=== PATIENT | female | born 1955 | race Caucasian/White ===

== ENCOUNTER 2020-04-24 15:15 | Observation (INO) | payer MEDICARE ==
[~2020-04-24] VITALS: Ht 157.5 cm; Wt 122.4 kg
[2020-04-24 15:55] LABS: BASOPHILS ABSOLUTE AUTO 0.05 K/mm3 (0.00-0.23); BASOPHILS PERCENT AUTO 0 % (0-2); EOSINOPHILS ABSOLUTE AUTO 0.02 K/mm3 (0.00-0.68); EOSINOPHILS PERCENT AUTO 0 % (0-6); Hematocrit 40.6 % (33.0-51.0); Hemoglobin 12.7 g/dL (11.5-16.0); IMMATURE GRAN ABSOLUTE AUTO 0.22 K/mm3 (0.00-0.10); IMMATURE GRAN PERCENT AUTO 1 % (0-1); LYMPHOCYTES PERCENT AUTO 14 % (21-46); MONOCYTES ABSOLUTE AUTO 1.16 K/mm3 (0.16-1.47); MONOCYTES PERCENT AUTO 4 % (4-13); Mean Corpuscular HGB 27.3 pg (26.0-34.0); Mean Corpuscular HGB Conc 31.3 g/dL (31.5-36.5); Mean Corpuscular Volume 87 fL (80-100); Mean Platelet Volume 10.3 fL (9.1-12.4); NEUTROPHILS ABSOLUTE AUTO 21.67 K/mm3 (1.96-9.15); NEUTROPHILS PERCENT AUTO 81 % (41-73); Platelet Count 407 K/mm3 (150-400); RDW Coefficient Variation 16.1 % (11.7-14.2); RDW Standard Deviation 51.4 fL (35.1-46.3); Red Blood Cell Count 4.66 M/mm3 (3.80-5.20); White Blood Cell Count 26.72 K/mm3 (4.00-11.30)
[2020-04-24 16:13] LABS: Alanine Aminotransfer (ALT/SGP 22 U/L (12-78); Albumin, Blood 3.2 g/dL (3.4-5.0); Albumin/Globulin Ratio 0.7 (0.8-1.8); Alk Phos 61 U/L (50-136); Anion Gap 6 mmol/L (6-16); Aspartate Aminotrans (AST/SGOT 6 U/L (12-37); Bilirubin, Total 0.3 mg/dL (0.1-1.0); Blood Urea Nitrogen 14 mg/dL (8-24); Bun/Creatinine Ratio 18.1 (12.0-20.0); CO2, Blood 30 mmol/L (21-32); Calcium, Blood 9.6 mg/dL (8.5-10.1); Chloride, Blood 104 mmol/L (98-108); Creatinine, Blood 0.77 mg/dL (0.40-1.00); Globulin, Blood 4.8 g/dL (2.2-4.0); Glomerular Filtration Rate >60 (60-); Glucose, Blood 182 mg/dL (70-99); Potassium, Blood 3.7 mmol/L (3.5-5.5); Sodium, Blood 140 mmol/L (136-145)
[2020-04-24] MEDS ORDERED: ATOR10 PO (18:19)
[2020-04-24] MEDS ORDERED: PREGABALIN300 MG PO (18:19)
[2020-04-24] MEDS ORDERED: EUTHYROX175 MC1 PO (18:19)
[2020-04-24] MEDS ORDERED: SITA100T2 PO (18:20)
[2020-04-24] MEDS ORDERED: OZEMPIC1 MG/0.71 SC (18:20)
[2020-04-24] MEDS ORDERED: LEVEMIR FL100 UNIT/2 SC (18:20)
[2020-04-24] MEDS ORDERED: NOVOLOG FL100 UNIT/3 SC (18:21)
[2020-04-24] MEDS ORDERED: ISOSORBIDE MONO30 MG PO (18:21)
[2020-04-24] MEDS ORDERED: LISINOPRIL-HCT1 EACH PO (18:22)
[2020-04-24] MEDS ORDERED: BEVESPI AEROS10.7 G1 INH (18:23)
[2020-04-24] MEDS ORDERED: METFORMIN HCL1000 M3 PO (18:23)
[2020-04-24] MEDS ORDERED: OMEP20ER PO (18:24)
[2020-04-24] MEDS ORDERED: Aspir 8181 MG PO (18:59)
[2020-04-24] MEDS ORDERED: BIOTIN1 MG PO (18:59)
[2020-04-24] MEDS ORDERED: ALBU90OI INH (18:59)
[2020-04-24] MEDS ORDERED: CALCIUM 600 +1 EAC7 PO (19:00)
--- NOTE | 2020-04-25 06:06 | NUR ---
SHIFT SUMMARY PT WAS A NEW ADMIT DURING THE NIGHT, ARRIVING ON THE FLOOR AT 2130. PT IS A&O X 4, AND INDEPENDENT IN THE ROOM. SHE WAS ADMITTED FOR A PERIDONTAL ABSCESS, WITH THREE OPEN SORES BENEATH HER TONGUE. ABSCESS WAS ASPIRATED IN THE ED, WITH A SMALL AMOUNT OF PURULENT DRAINAGE PULLED OUT PER ED RN REPORT. PT WAS MEDICATED FOR ORAL PAIN TWICE WITH PRN HYDROCODONE. NO COMPLAINTS OF NAUSEA OR SOB. SHE IS RECEIVING NS @ 100 ML/HR. VITALS SIGNS STABLE. NO OTHER ACUTE CHANGES IN PT CONDITION NOTED. WILL CONTINUE TO MONITOR AND TREAT PER EMAR UNTIL HAND OFF TO DAY SHIFT RN.
[2020-04-25 06:07] LABS: BASOPHILS ABSOLUTE AUTO 0.02 K/mm3 (0.00-0.23); BASOPHILS PERCENT AUTO 0 % (0-2); EOSINOPHILS PERCENT AUTO 0 % (0-6); Hematocrit 38.1 % (33.0-51.0); Hemoglobin 11.7 g/dL (11.5-16.0); IMMATURE GRAN ABSOLUTE AUTO 0.17 K/mm3 (0.00-0.10); IMMATURE GRAN PERCENT AUTO 1 % (0-1); LYMPHOCYTES ABSOLUTE AUTO 1.36 K/mm3 (0.84-5.20); LYMPHOCYTES PERCENT AUTO 7 % (21-46); MONOCYTES ABSOLUTE AUTO 0.41 K/mm3 (0.16-1.47); MONOCYTES PERCENT AUTO 2 % (4-13); Mean Corpuscular HGB 27.2 pg (26.0-34.0); Mean Corpuscular HGB Conc 30.7 g/dL (31.5-36.5); Mean Corpuscular Volume 89 fL (80-100); Mean Platelet Volume 10.7 fL (9.1-12.4); NEUTROPHILS ABSOLUTE AUTO 16.86 K/mm3 (1.96-9.15); NEUTROPHILS PERCENT AUTO 90 % (41-73); Platelet Count 368 K/mm3 (150-400); RDW Standard Deviation 52.5 fL (35.1-46.3); White Blood Cell Count 18.82 K/mm3 (4.00-11.30)
[2020-04-25 06:44] LABS: Anion Gap 7 mmol/L (6-16); Blood Urea Nitrogen 15 mg/dL (8-24); Bun/Creatinine Ratio 20.8 (12.0-20.0); CO2, Blood 26 mmol/L (21-32); Calcium, Blood 8.7 mg/dL (8.5-10.1); Chloride, Blood 104 mmol/L (98-108); Creatinine, Blood 0.72 mg/dL (0.40-1.00); Glomerular Filtration Rate >60 (60-); Glucose, Blood 290 mg/dL (70-99); Potassium, Blood 4.3 mmol/L (3.5-5.5); Sodium, Blood 137 mmol/L (136-145)
--- NOTE | 2020-04-25 09:25 | NUR ---
A/O,PLEASANT/COOP. C/O PAINFUL ORAL MUCOSA. BLISTERS NOTED UNDER TONGUE. HYDROCODONE AND TORADOL GIVEN FOR PAIN WITH GOOD RELIEF FROM 04/09 TO 11/07. UP INDEP IN ROOM. TOLERATING FL DIET AFTER SEVERAL DAYS WITHOUT EATING PER PT. IV ABX TO BE STARTED THIS MORNING.
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
--- NOTE | 2020-04-26 04:54 | NUR ---
SHIFT SUMMARY: PT IS ALERT AND ORIENTED. PT IS CALM AND COOPERATIVE WITH CARE. PT IS INDEPENDENT IN THE ROOM. PT CALLS APPROPRIATELY. PT DENIES PAIN, NAUSEA, VOMITING, AND SOB. PT SLEPT MUCH OF THE NIGHT WHEN NOT DISTURBED. NO ACUTE CHANGES OR COMPLICATIONS THIS SHIFT. BED IN LOW POSITION, CALL LIGHT WITHIN REACH. WILL CONTINUE TO MONITOR.
[2020-04-26 05:31] LABS: BASOPHILS ABSOLUTE AUTO 0.02 K/mm3 (0.00-0.23); BASOPHILS PERCENT AUTO 0 % (0-2); EOSINOPHILS PERCENT AUTO 0 % (0-6); Hemoglobin 11.1 g/dL (11.5-16.0); IMMATURE GRAN ABSOLUTE AUTO 0.11 K/mm3 (0.00-0.10); IMMATURE GRAN PERCENT AUTO 1 % (0-1); LYMPHOCYTES ABSOLUTE AUTO 3.14 K/mm3 (0.84-5.20); LYMPHOCYTES PERCENT AUTO 22 % (21-46); MONOCYTES ABSOLUTE AUTO 0.98 K/mm3 (0.16-1.47); MONOCYTES PERCENT AUTO 7 % (4-13); Mean Corpuscular HGB 27.1 pg (26.0-34.0); Mean Corpuscular HGB Conc 30.8 g/dL (31.5-36.5); Mean Corpuscular Volume 88 fL (80-100); Mean Platelet Volume 10.4 fL (9.1-12.4); NEUTROPHILS ABSOLUTE AUTO 10.23 K/mm3 (1.96-9.15); NEUTROPHILS PERCENT AUTO 71 % (41-73); Platelet Count 348 K/mm3 (150-400); RDW Coefficient Variation 15.9 % (11.7-14.2); RDW Standard Deviation 51.9 fL (35.1-46.3); Red Blood Cell Count 4.09 M/mm3 (3.80-5.20); White Blood Cell Count 14.48 K/mm3 (4.00-11.30)
[2020-04-26 05:57] LABS: Albumin, Blood 2.7 g/dL (3.4-5.0); Anion Gap 5 mmol/L (6-16); Blood Urea Nitrogen 17 mg/dL (8-24); Bun/Creatinine Ratio 22.5 (12.0-20.0); CO2, Blood 30 mmol/L (21-32); Calcium, Blood 9.2 mg/dL (8.5-10.1); Chloride, Blood 105 mmol/L (98-108); Creatinine, Blood 0.75 mg/dL (0.40-1.00); Glomerular Filtration Rate >60 (60-); Glucose, Blood 232 mg/dL (70-99); Phosphorus, Blood 3.4 mg/dL (2.5-4.9); Potassium, Blood 4.5 mmol/L (3.5-5.5); Sodium, Blood 140 mmol/L (136-145)
[2020-04-26] MEDS ORDERED: ACET325 PO (10:53)
[2020-04-26] MEDS ORDERED: AMOCLA875 PO (10:54)
[2020-04-26] MEDS ORDERED: DEXA4 PO (10:55)
[2020-04-26] MEDS ORDERED: Norco 5-325 Ta1 EACH PO (10:55)
[2020-04-26] MEDS ORDERED: ONDA4ODT MM (11:01)
[2020-04-26] MEDS ORDERED: LIDO5TO (11:01)
[2020-04-26] MEDS ORDERED: LACT PO (11:02)
== END 2020-04-26 12:53 | disposition home or self-care (01) ==
LOC: ER 15:15 → MEDS 15:16
PROVIDERS: Internal Medicine; Physician Assistant; ADMIT Internal Medicine
PROC: 0C960ZZ Drainage of Lower Gingiva, Open Approach (ICD-10-PCS; principal; 2020-04-24)
DX: K05.219 Aggressive periodontitis, localized, unspecified severity (principal); I25.10 Atherosclerotic heart disease of native coronary artery without angina pectoris; E03.9 Hypothyroidism, unspecified; G47.33 Obstructive sleep apnea (adult) (pediatric); E66.9 Obesity, unspecified; E11.22 Type 2 diabetes mellitus with diabetic chronic kidney disease; E11.65 Type 2 diabetes mellitus with hyperglycemia; I12.9 Hypertensive chronic kidney disease with stage 1 through stage 4 chronic kidney disease, or unspecified chronic kidney disease; N18.9 Chronic kidney disease, unspecified; J44.9 Chronic obstructive pulmonary disease, unspecified; Z79.4 Long term (current) use of insulin; Z95.5 Presence of coronary angioplasty implant and graft; E78.5 Hyperlipidemia, unspecified; Z20.828 Contact with and (suspected) exposure to other viral communicable diseases; Z79.899 Other long term (current) drug therapy; Z87.891 Personal history of nicotine dependence; Z68.43 Body mass index [BMI] 50.0-59.9, adult
CPT/HCPCS: 10160; 36415; 70491; 80048; 80053; 80069; 82947; 83605; 85025; 87040; 94640; 94760; 94762; 96361; 96365-59; 96366; 96367; 96372; 96375-59; 96376; 99285-25; A9270; A9270-GY; G0378; J0295; J1100; J1650; J1885; J2405; J3010; J7030; Q9967

== ENCOUNTER → 2020-05-25 | Outpatient (CLI) | payer MEDICARE ==
[~2020-05-25] MED LIST: ACET325 PO; ALBU90OI INH; AMOCLA875 PO; ATOR10 PO; Aspir 8181 MG PO; BEVESPI AEROS10.7 G1 INH; BIOTIN1 MG PO; CALCIUM 600 +1 EAC7 PO; DEXA4 PO; EUTHYROX175 MC1 PO; ISOSORBIDE MONO30 MG PO; LACT PO; LEVEMIR FL100 UNIT/2 SC; LIDO5TO; LISINOPRIL-HCT1 EACH PO; METFORMIN HCL1000 M3 PO; NOVOLOG FL100 UNIT/3 SC; Norco 5-325 Ta1 EACH PO; OMEP20ER PO; ONDA4ODT MM; OZEMPIC1 MG/0.71 SC; PREGABALIN300 MG PO; SITA100T2 PO
== END ==
LOC: LAB SHORT 15:21 → LAB 15:21
DX: H60.91 Unspecified otitis externa, right ear (principal); H93.91 Unspecified disorder of right ear
CPT/HCPCS: 87070; 87077; 87147; 87186; 87205